=== PATIENT | female | born 1955 | race Caucasian/White ===

== ENCOUNTER 2018-10-05 08:17 | Inpatient (IN) | payer OTHER ==
[2018-09-27 13:28] LABS: BASOPHILS # (AUTO) 0.1 K/uL (0.0-0.2); EOSINOPHILS # (AUTO) 0.4 K/uL (0.0-0.4); EOSINOPHILS % (AUTO) 3.4 % (0.0-4.0); HEMATOCRIT 31.8 % (36-48); HEMOGLOBIN 9.9 g/dL (12.0-16.0); LYMPHOCYTES # (AUTO) 2.1 K/uL (1.0-5.5); LYMPHOCYTES % (AUTO) 20.1 % (20.5-51.5); MEAN CORPUSCULAR HEMOGLOBIN 26 pg (27-31); MEAN CORPUSCULAR HGB CONC 31 % (32-36); MEAN CORPUSCULAR VOLUME 85 fL (79.0-98.0); MONOCYTES # (AUTO) 0.7 K/uL (0.0-1.0); MONOCYTES % (AUTO) 6.3 % (1.7-9.3); NEUTROPHILS # (AUTO) 7.4 K/uL (1.8-7.7); NEUTROPHILS % (AUTO) 69.2 % (40.0-70.0); PLATELET COUNT (AUTO) 350 K/uL (130-430); RED BLOOD CELL COUNT(AUTO) 3.77 MIL/uL (4.2-6.2); RED CELL DISTRIBUTION WIDTH 14.1 % (9.0-15.0); WHITE BLOOD COUNT (AUTO) 10.7 K/uL (4.8-10.8)
[2018-09-27 13:40] LABS: BILIRUBIN,URINE NEGATIVE (NEGATIVE); BLOOD, URINE NEGATIVE (NEGATIVE); CLARITY/URINE CLEAR (CLEAR); COLOR,URINE YELLOW (YELLOW); GLUCOSE,URINE NEGATIVE (NEGATIVE); KETONES,URINE NEGATIVE (NEGATIVE); LEUKOCYTE ESTERASE ,URINE NEGATIVE (NEGATIVE); NITRITE, URINE NEGATIVE (NEGATIVE); PROTEIN URINE NEGATIVE (NEGATIVE); UROBILINOGEN,URINE 0.2 (0.2-1.0)
[2018-09-27 13:41] LABS: CALCIUM 9.2 mg/dL (8.4-11.0); CREATININE 0.73 mg/dL (0.55-1.30); POTASSIUM 3.9 mmol/L (3.5-5.1)
[~2018-10-05] VITALS: Ht 162.6 cm; Wt 109.8 kg
[2018-10-05] MEDS ORDERED: LR 1,000 ML IV ONE (08:45)
[2018-10-05] MEDS ORDERED: VANCOMYCIN HCL 1 GM/NS PREMIX 250 ML IV ONE (08:45)
[2018-10-05] MEDS ORDERED: CEFAZOLIN 2 GM IVPB PREMIX 50 ML IV ONE (08:45)
[2018-10-05] MEDS ORDERED: [UNRECOGNIZED DRUG - CODE] PO (09:51)
[2018-10-05] MEDS ORDERED: PROP10TA10 PO (09:51)
[2018-10-05] MEDS ORDERED: TURM1CAP2 PO (09:51)
[2018-10-05] MEDS ORDERED: LOSA50TA3 PO (09:51)
[2018-10-05] MEDS ORDERED: fentaNYL CITRATE 250 MCG/5 ML AMP IV ONE (11:30)
[2018-10-05] MEDS ORDERED: KETOROLAC TROMETHAMINE 30 MG VIAL IVP ONE (11:30)
[2018-10-05] MEDS ORDERED: SEVOFLURANE 15 MIN GAS INH ONE (11:30)
[2018-10-05] MEDS ORDERED: ROPIVACAINE HCL/PF 5 MG/ML 0.5% 30 ML VIAL INJ ONE (11:30)
[2018-10-05] MEDS ORDERED: NS 1000 ML IV.SOLN IV ONE (11:30)
[2018-10-05] MEDS ORDERED: NS 50 ML BAG IV ONE (11:30)
[2018-10-05] MEDS ORDERED: ROCURONIUM BROMIDE 10 MG/ML (ZEMURON) IV ONE (11:30)
[2018-10-05] MEDS ORDERED: ONDANSETRON HCL 4 MG/2 ML VIAL IVP ONE (11:30)
[2018-10-05] MEDS ORDERED: LIDOCAINE 1% 10 MG/ML, 20 ML MDV INJ ONE (11:30)
[2018-10-05] MEDS ORDERED: MIDAZOLAM HCL 5 MG/5 ML VIAL IVP ONE (11:30)
[2018-10-05] MEDS ORDERED: LR 1,000 ML IV.SOLN IV ONE (11:30)
[2018-10-05] MEDS ORDERED: ROPIVACAINE HCL/PF 0.2% (NAROPIN) 200 ML PLAST..BAG EP ONE (11:30)
[2018-10-05] MEDS ORDERED: PROPOFOL 200MG/ 20ML VIAL (DIPRIVAN) IV ONE (11:30)
[2018-10-05] MEDS ORDERED: TRANEXAMIC ACID 1,000 MG/10 ML VIAL IV ONE (11:30)
[2018-10-05] MEDS ORDERED: POLYMYXIN 500,000/BACIT.10,000 UNITS in NS IRR 1 L IR ONE ×2 (12:29→12:37)
[2018-10-05] MEDS: LR 1,000 ML IV SCH ×2 (13:53→16:00)
[2018-10-05] MEDS ORDERED: HYDROmorphone 2 MG/ML VIAL IVP PRN (14:00)
[2018-10-05] MEDS ORDERED: ONDANSETRON HCL 4 MG/2 ML VIAL IVP PRN ×2 (14:00→17:00)
[2018-10-05] MEDS ORDERED: HYDROmorphone 1 MG INJ. 1 MG/ML AMPUL IVP PRN ×2 (14:00)
[2018-10-05] MEDS ORDERED: ACETAMINOPHEN 325 MG TABLET PO PRN (15:45)
[2018-10-05] MEDS ORDERED: DIPHENHYDRAMINE HCL 25 MG CAPSULE PO PRN (15:45)
[2018-10-05] MEDS ORDERED: HYDROmorphone 1 MG INJ. 1 MG/ML AMPUL ONE (16:47)
[2018-10-05 17:00] VITALS: BP_SYST 143
[2018-10-05] MEDS ORDERED: cloNIDine HCL 0.1 MG TABLET PO PRN (17:00)
[2018-10-05] MEDS: D5/0.45 NS 1,000 ML IV SCH (17:07)
[2018-10-05 17:09] VITALS: BP_SYST 143
[2018-10-05] MEDS: KETOROLAC TROMETHAMINE 15 MG VIAL IVP SCH (18:21)
[2018-10-05] MEDS ORDERED: TRANEXAMIC ACID 1,000 MG in NS 50 ML IV ONE (18:45)
[2018-10-05] MEDS: IPRATROPIUM/ALBUTEROL SULFATE 3 ML AMPUL.NEB (DUONEB) INH SCH (19:45)
[2018-10-05 20:00] VITALS: BP_SYST 137
[2018-10-05] MEDS: PROPRANOLOL HCL 10 MG TABLET (INDERAL) PO SCH (20:51)
[2018-10-05] MEDS: SENNOSIDES 8.6 MG TABLET PO SCH (20:52)
[2018-10-06] MEDS: KETOROLAC TROMETHAMINE 15 MG VIAL IVP SCH ×2 (00:24→05:54)
[2018-10-06] MEDS: D5/0.45 NS 1,000 ML IV SCH ×3 (00:25→17:45)
[2018-10-06 00:26] VITALS: BP_SYST 117
[2018-10-06] MEDS: OXYCODONE/ACETAMINOPHEN 5-325 TABLET PO PRN (06:26)
[2018-10-06 06:52] LABS: BASOPHILS % (AUTO) 0.2 % (0.0-2.0); EOSINOPHILS % (AUTO) 0.3 % (0.0-4.0); HEMATOCRIT 25.2 % (36-48); HEMOGLOBIN 8.2 g/dL (12.0-16.0); LYMPHOCYTES # (AUTO) 1.4 K/uL (1.0-5.5); LYMPHOCYTES % (AUTO) 10.3 % (20.5-51.5); MEAN CORPUSCULAR HEMOGLOBIN 27 pg (27-31); MEAN CORPUSCULAR HGB CONC 33 % (32-36); MEAN CORPUSCULAR VOLUME 83 fL (79.0-98.0); MONOCYTES % (AUTO) 7.5 % (1.7-9.3); NEUTROPHILS # (AUTO) 11.6 K/uL (1.8-7.7); NEUTROPHILS % (AUTO) 81.7 % (40.0-70.0); PLATELET COUNT (AUTO) 281 K/uL (130-430); RED BLOOD CELL COUNT(AUTO) 3.03 MIL/uL (4.2-6.2); RED CELL DISTRIBUTION WIDTH 13.1 % (9.0-15.0)
[2018-10-06] MEDS: IPRATROPIUM/ALBUTEROL SULFATE 3 ML AMPUL.NEB (DUONEB) INH SCH ×4 (07:00→20:10)
[2018-10-06 07:52] LABS: CALCIUM 7.3 mg/dL (8.4-11.0); CREATININE 0.94 mg/dL (0.55-1.30); POTASSIUM 4.3 mmol/L (3.5-5.1)
[2018-10-06] MEDS: MULTIVITAMINS TAB 1 TABLET PO SCH ×2 (08:49→20:35)
[2018-10-06] MEDS: LOSARTAN POTASSIUM 50 MG TABLET (COZAAR) PO SCH (08:50)
[2018-10-06] MEDS: IPRATROPIUM/ALBUTEROL SULFATE 3 ML AMPUL.NEB (DUONEB) INH PRN ×2 (08:51→13:15)
[2018-10-06] MEDS: PROPRANOLOL HCL 10 MG TABLET (INDERAL) PO SCH ×2 (08:52→20:34)
[2018-10-06] MEDS: ASCORBIC ACID 500 MG TABLET PO SCH ×2 (08:52→20:35)
[2018-10-06] MEDS: FERROUS SULFATE 140 MG TABLET.ER PO SCH (08:52)
[2018-10-06 08:56] VITALS: BP_SYST 117
[2018-10-06] MEDS: RIVAROXABAN 10 MG TABLET PO SCH (10:03)
[2018-10-06] MEDS: OXYCODONE/ACETAMINOPHEN *10*mg/325 mg TABLET PO PRN ×2 (12:01→16:51)
[2018-10-06 12:21] VITALS: BP_SYST 101
[2018-10-06 12:44] LABS: TOTAL IRON BIND. CAPACITY 194 ug/dL (250-450)
[2018-10-06] MEDS ORDERED: MULTIVITAMINS TAB 1 TABLET PO ONE (13:15)
[2018-10-06] MEDS ORDERED: PANTOPRAZOLE GRANULES PACKET 40 MG GT ONE (13:15)
[2018-10-06] MEDS ORDERED: CHOLECALCIFEROL (VITAMIN D3) 2,000 UNIT TABLET PO ONE (13:15)
[2018-10-06 16:23] VITALS: BP_SYST 106
[2018-10-06] MEDS: SOD FERRIC GLUC COMPLEX/SUC 125 MG in NS 100 ML IV SCH (16:59)
[2018-10-06 20:00] VITALS: BP_SYST 107
[2018-10-06] MEDS: SENNOSIDES 8.6 MG TABLET PO SCH (20:34)
[2018-10-06] MEDS: PANTOPRAZOLE GRANULES PACKET 40 MG GT SCH (20:35)
[2018-10-06 23:22] VITALS: BP_SYST 114
[2018-10-07] MEDS: OXYCODONE/ACETAMINOPHEN 5-325 TABLET PO PRN ×3 (01:27→13:34)
[2018-10-07 04:40] VITALS: BP_SYST 104
[2018-10-07 06:06] LABS: FOLATE (FOLIC ACID) 13.4 ng/mL (>3.0)
[2018-10-07 07:00] LABS: CALCIUM 7.3 mg/dL (8.4-11.0); CREATININE 0.97 mg/dL (0.55-1.30)
[2018-10-07] MEDS: IPRATROPIUM/ALBUTEROL SULFATE 3 ML AMPUL.NEB (DUONEB) INH SCH ×4 (07:00→21:03)
[2018-10-07 08:00] VITALS: BP_SYST 108
[2018-10-07 08:51] LABS: BASOPHILS # (AUTO) 0.1 K/uL (0.0-0.2); BASOPHILS % (AUTO) 0.7 % (0.0-2.0); EOSINOPHILS # (AUTO) 0.2 K/uL (0.0-0.4); EOSINOPHILS % (AUTO) 1.1 % (0.0-4.0); HEMATOCRIT 23.6 % (36-48); HEMOGLOBIN 7.7 g/dL (12.0-16.0); LYMPHOCYTES # (AUTO) 1.3 K/uL (1.0-5.5); LYMPHOCYTES % (AUTO) 9.2 % (20.5-51.5); MEAN CORPUSCULAR HEMOGLOBIN 27 pg (27-31); MEAN CORPUSCULAR HGB CONC 33 % (32-36); MEAN CORPUSCULAR VOLUME 83 fL (79.0-98.0); MONOCYTES # (AUTO) 1.1 K/uL (0.0-1.0); MONOCYTES % (AUTO) 7.7 % (1.7-9.3); NEUTROPHILS % (AUTO) 81.3 % (40.0-70.0); PLATELET COUNT (AUTO) 207 K/uL (130-430); RED BLOOD CELL COUNT(AUTO) 2.84 MIL/uL (4.2-6.2); RED CELL DISTRIBUTION WIDTH 13.6 % (9.0-15.0); WHITE BLOOD COUNT (AUTO) 13.7 K/uL (4.8-10.8)
[2018-10-07] MEDS: ASCORBIC ACID 500 MG TABLET PO SCH ×2 (08:53→20:47)
[2018-10-07] MEDS: MULTIVITAMINS TAB 1 TABLET PO SCH ×3 (08:53→20:48)
[2018-10-07] MEDS: CHOLECALCIFEROL (VITAMIN D3) 2,000 UNIT TABLET PO SCH (08:54)
[2018-10-07] MEDS: PANTOPRAZOLE GRANULES PACKET 40 MG GT SCH ×2 (08:54→20:47)
[2018-10-07] MEDS: FERROUS SULFATE 140 MG TABLET.ER PO SCH (08:54)
[2018-10-07] MEDS: LOSARTAN POTASSIUM 50 MG TABLET (COZAAR) PO SCH (08:55)
[2018-10-07] MEDS: PROPRANOLOL HCL 10 MG TABLET (INDERAL) PO SCH ×2 (08:56→20:47)
[2018-10-07 12:00] VITALS: BP_SYST 134
[2018-10-07] MEDS: RIVAROXABAN 10 MG TABLET PO SCH (13:32)
[2018-10-07 16:43] VITALS: BP_SYST 160
[2018-10-07] MEDS: SOD FERRIC GLUC COMPLEX/SUC 125 MG in NS 100 ML IV SCH (17:31)
[2018-10-07 20:00] VITALS: BP_SYST 123
[2018-10-07] MEDS: SENNOSIDES 8.6 MG TABLET PO SCH (20:48)
[2018-10-08 00:44] VITALS: BP_SYST 129
[2018-10-08] MEDS: OXYCODONE/ACETAMINOPHEN *10*mg/325 mg TABLET PO PRN (03:22)
[2018-10-08] MEDS: D5/0.45 NS 1,000 ML IV SCH ×2 (03:24→16:50)
[2018-10-08 07:11] LABS: CALCIUM 7.8 mg/dL (8.4-11.0); CREATININE 0.86 mg/dL (0.55-1.30); POTASSIUM 4.1 mmol/L (3.5-5.1)
[2018-10-08 07:45] LABS: BASOPHILS % (AUTO) 0.3 % (0.0-2.0); EOSINOPHILS # (AUTO) 0.1 K/uL (0.0-0.4); EOSINOPHILS % (AUTO) 0.7 % (0.0-4.0); HEMOGLOBIN 7.2 g/dL (12.0-16.0); LYMPHOCYTES # (AUTO) 1.5 K/uL (1.0-5.5); LYMPHOCYTES % (AUTO) 11.7 % (20.5-51.5); MEAN CORPUSCULAR HEMOGLOBIN 28 pg (27-31); MEAN CORPUSCULAR HGB CONC 33 % (32-36); MEAN CORPUSCULAR VOLUME 83 fL (79.0-98.0); MONOCYTES # (AUTO) 1.3 K/uL (0.0-1.0); MONOCYTES % (AUTO) 9.8 % (1.7-9.3); NEUTROPHILS # (AUTO) 10.3 K/uL (1.8-7.7); NEUTROPHILS % (AUTO) 77.5 % (40.0-70.0); PLATELET COUNT (AUTO) 199 K/uL (130-430); RED BLOOD CELL COUNT(AUTO) 2.62 MIL/uL (4.2-6.2); RED CELL DISTRIBUTION WIDTH 13.7 % (9.0-15.0)
[2018-10-08] MEDS: IPRATROPIUM/ALBUTEROL SULFATE 3 ML AMPUL.NEB (DUONEB) INH SCH ×4 (07:58→20:09)
[2018-10-08 08:00] VITALS: BP_SYST 104
[2018-10-08] MEDS: ASCORBIC ACID 500 MG TABLET PO SCH ×2 (08:49→22:05)
[2018-10-08] MEDS: MULTIVITAMINS TAB 1 TABLET PO SCH ×3 (08:49→22:06)
[2018-10-08] MEDS: PANTOPRAZOLE GRANULES PACKET 40 MG GT SCH (08:50)
[2018-10-08] MEDS: LOSARTAN POTASSIUM 50 MG TABLET (COZAAR) PO SCH (08:50)
[2018-10-08] MEDS: PROPRANOLOL HCL 10 MG TABLET (INDERAL) PO SCH ×2 (08:51→22:06)
[2018-10-08] MEDS: FERROUS SULFATE 140 MG TABLET.ER PO SCH (08:51)
[2018-10-08] MEDS: CHOLECALCIFEROL (VITAMIN D3) 2,000 UNIT TABLET PO SCH ×2 (08:52→22:06)
[2018-10-08] MEDS: OXYCODONE/ACETAMINOPHEN 5-325 TABLET PO PRN ×2 (08:58→16:49)
[2018-10-08 09:54] VITALS: BP_SYST 129
[2018-10-08] MEDS: RIVAROXABAN 10 MG TABLET PO SCH (09:54)
[2018-10-08 12:27] VITALS: BP_SYST 147
[2018-10-08 16:49] VITALS: BP_SYST 125
[2018-10-08] MEDS: SOD FERRIC GLUC COMPLEX/SUC 125 MG in NS 100 ML IV SCH (16:49)
[2018-10-08 20:00] VITALS: BP_SYST 135
[2018-10-08] MEDS ORDERED: MULTIVITAMINS TAB 1 TABLET PO SCH (21:00)
[2018-10-08] MEDS ORDERED: COMMUNICATION ORDER XX ONE (21:00)
[2018-10-08] MEDS ORDERED: PANTOPRAZOLE GRANULES PACKET 40 MG PO ONE (22:00)
[2018-10-08] MEDS: SENNOSIDES 8.6 MG TABLET PO SCH (22:04)
[2018-10-09] MEDS: OXYCODONE/ACETAMINOPHEN *10*mg/325 mg TABLET PO PRN ×3 (01:46→15:11)
[2018-10-09] MEDS: D5/0.45 NS 1,000 ML IV SCH (03:02)
[2018-10-09 05:23] LABS: CALCIUM 8.1 mg/dL (8.4-11.0); CREATININE 0.79 mg/dL (0.55-1.30); POTASSIUM 3.9 mmol/L (3.5-5.1)
[2018-10-09 05:54] LABS: EOSINOPHILS # (AUTO) 0.2 K/uL (0.0-0.4); EOSINOPHILS % (AUTO) 1.3 % (0.0-4.0); HEMATOCRIT 22.5 % (36-48); LYMPHOCYTES # (AUTO) 1.9 K/uL (1.0-5.5); NEUTROPHILS # (AUTO) 8.9 K/uL (1.8-7.7)
[2018-10-09 05:58] LABS: BASOPHILS % (AUTO) 0.4 % (0.0-2.0); LYMPHOCYTES % (AUTO) 15.6 % (20.5-51.5); MEAN CORPUSCULAR HEMOGLOBIN 27 pg (27-31); MEAN CORPUSCULAR HGB CONC 33 % (32-36); MEAN CORPUSCULAR VOLUME 84 fL (79.0-98.0); MONOCYTES # (AUTO) 1.2 K/uL (0.0-1.0); MONOCYTES % (AUTO) 9.6 % (1.7-9.3); NEUTROPHILS % (AUTO) 73.1 % (40.0-70.0); PLATELET COUNT (AUTO) 246 K/uL (130-430); RED BLOOD CELL COUNT(AUTO) 2.68 MIL/uL (4.2-6.2); RED CELL DISTRIBUTION WIDTH 13.7 % (9.0-15.0); WHITE BLOOD COUNT (AUTO) 12.2 K/uL (4.8-10.8)
[2018-10-09 06:01] LABS: HEMOGLOBIN 7.3 g/dL (12.0-16.0)
[2018-10-09 06:26] VITALS: BP_SYST 137
[2018-10-09 07:56] VITALS: BP_SYST 154
[2018-10-09] MEDS: IPRATROPIUM/ALBUTEROL SULFATE 3 ML AMPUL.NEB (DUONEB) INH SCH ×3 (08:00→15:00)
[2018-10-09] MEDS: MULTIVITAMINS TAB 1 TABLET PO SCH (08:06)
[2018-10-09] MEDS: CHOLECALCIFEROL (VITAMIN D3) 2,000 UNIT TABLET PO SCH (08:06)
[2018-10-09] MEDS: PROPRANOLOL HCL 10 MG TABLET (INDERAL) PO SCH (08:07)
[2018-10-09] MEDS: ASCORBIC ACID 500 MG TABLET PO SCH (08:07)
[2018-10-09] MEDS: FERROUS SULFATE 140 MG TABLET.ER PO SCH (08:08)
[2018-10-09] MEDS: OXYCODONE/ACETAMINOPHEN 5-325 TABLET PO PRN (08:08)
[2018-10-09] MEDS: LOSARTAN POTASSIUM 50 MG TABLET (COZAAR) PO SCH (08:08)
[2018-10-09] MEDS ORDERED: PANTOPRAZOLE GRANULES PACKET 40 MG PO SCH (09:00)
[2018-10-09] MEDS: RIVAROXABAN 10 MG TABLET PO SCH (10:39)
[2018-10-09 11:35] VITALS: BP_SYST 125
[2018-10-09 12:00] VITALS: BP_SYST 122; BP_SYST 125
[2018-10-09 14:00] VITALS: BP_SYST 125
[2018-10-09] MEDS: SOD FERRIC GLUC COMPLEX/SUC 125 MG in NS 100 ML IV SCH (15:11)
[2018-10-09] MEDS ORDERED: PANT20TA2 PO (17:06)
[2018-10-09 17:16] LABS: BASOPHILS # (AUTO) 0.1 K/uL (0.0-0.2); BASOPHILS % (AUTO) 0.5 % (0.0-2.0); EOSINOPHILS # (AUTO) 0.3 K/uL (0.0-0.4); EOSINOPHILS % (AUTO) 2.5 % (0.0-4.0); HEMATOCRIT 22.3 % (36-48); LYMPHOCYTES # (AUTO) 1.9 K/uL (1.0-5.5); LYMPHOCYTES % (AUTO) 16.7 % (20.5-51.5); MEAN CORPUSCULAR HEMOGLOBIN 27 pg (27-31); MEAN CORPUSCULAR HGB CONC 32 % (32-36); MEAN CORPUSCULAR VOLUME 84 fL (79.0-98.0); MONOCYTES # (AUTO) 1.1 K/uL (0.0-1.0); MONOCYTES % (AUTO) 9.7 % (1.7-9.3); NEUTROPHILS # (AUTO) 8.1 K/uL (1.8-7.7); NEUTROPHILS % (AUTO) 70.6 % (40.0-70.0); PLATELET COUNT (AUTO) 271 K/uL (130-430); RED BLOOD CELL COUNT(AUTO) 2.65 MIL/uL (4.2-6.2); RED CELL DISTRIBUTION WIDTH 14.2 % (9.0-15.0); WHITE BLOOD COUNT (AUTO) 11.5 K/uL (4.8-10.8)
[2018-10-09 17:21] LABS: HEMOGLOBIN 7.2 g/dL (12.0-16.0)
== END 2018-10-09 15:40 | disposition home health service (06) | DRG 470 ==
LOC: SMU 08:17
PROVIDERS: ADMIT Orthopaedic Surgery; ATTEND Orthopaedic Surgery
PROC: 0SRC0J9 Replacement of Right Knee Joint with Synthetic Substitute, Cemented, Open Approach (ICD-10-PCS; 2018-10-05)
PROC: 30233N1 Transfusion of Nonautologous Red Blood Cells into Peripheral Vein, Percutaneous Approach (ICD-10-PCS; principal; 2018-10-05 11:30)
DX: M17.11 Unilateral primary osteoarthritis, right knee (principal); Z68.41 Body mass index [BMI] 40.0-44.9, adult; M87.051 Idiopathic aseptic necrosis of right femur; I10 Essential (primary) hypertension; E06.9 Thyroiditis, unspecified; E66.9 Obesity, unspecified; Z88.8 Allergy status to other drugs, medicaments and biological substances; Z88.5 Allergy status to narcotic agent; Z87.891 Personal history of nicotine dependence; G57.31 Lesion of lateral popliteal nerve, right lower limb; D50.9 Iron deficiency anemia, unspecified; Z79.01 Long term (current) use of anticoagulants; E55.9 Vitamin D deficiency, unspecified
CPT/HCPCS: 36415; 71046-TC; 73560-TC; 80048; 81003; 82306; 82607; 82746; 83540-TC; 83550-TC; 85025; 86886; 86890; 86900; 86901; 86920; 87081; 88305; 88311; 94010; 94640; 94760; 97110-GP; 97116-GP; 97530-GP; C1713; C1776; J0690; J1170; J1885; J2001; J2250; J2405; J2704; J2916; J3010; J3370; J3490; J7030; J7050; J7120; J7620

== ENCOUNTER 2018-10-21 12:50 | Outpatient (CLI) | payer OTHER ==
[~2018-10-21 12:50] MED LIST: LOSA50TA3 PO; PANT20TA2 PO; PROP10TA10 PO; TURM1CAP2 PO
== END 2018-10-21 21:00 | disposition home or self-care (01) ==
LOC: SUS 12:50
PROVIDERS: ATTEND Orthopaedic Surgery
DX: M79.89 Other specified soft tissue disorders (principal); R60.0 Localized edema
CPT/HCPCS: 93970